=== PATIENT | female | born 1990 | race Caucasian/White ===

== ENCOUNTER 2016-11-11 18:10 | Outpatient (CLI) | payer MEDICAID ==
[~2016-11-11] VITALS: Ht 160 cm; Wt 90.9 kg
[2016-11-11 18:25] VITALS: BP 128/92
[2016-11-11 19:21] LABS: AMNI LOT 554010215
[2016-11-11 19:40] LABS: AMNI OBC PASS; AMNISURE NEGATIVE (NEGATIVE)
== END 2016-11-11 21:00 | disposition home or self-care (01) ==
LOC: LDOP 18:10
PROVIDERS: ATTEND Obstetrics & Gynecology
DX: O26.893 Other specified pregnancy related conditions, third trimester (principal); R10.9 Unspecified abdominal pain; O42.92 Full-term premature rupture of membranes, unspecified as to length of time between rupture and onset of labor; O99.333 Smoking (tobacco) complicating pregnancy, third trimester; F17.200 Nicotine dependence, unspecified, uncomplicated; Z3A.38 38 weeks gestation of pregnancy
CPT/HCPCS: 59025; 81003; 84112; 99211; G0463